=== PATIENT | male | born 1975 | race Caucasian/White ===

== ENCOUNTER 2016-10-23 16:16 | Emergency (ER) | payer MEDICAID ==
[2016-10-23 16:50] VITALS: BP 153/64
[2016-10-23] MEDS ORDERED: KETOROLAC TROMETHAMINE 60 MG/2 ML VIAL IM ONE ×2 (17:35→17:46)
[2016-10-23] MEDS ORDERED: DIAZEPAM 5 MG/ML SYRG IM ONE (17:35)
--- OUTSIDE RECORDS SUMMARY | 2016-10-23 17:36 | XMS REPORT | Continuity of Care Document ---
:1975 Author Organization [facility] ([facility]) Address [address] [address] Phone [phone] Care Team Providers Name Role Phone Unavailable Primary Care Provider Unavailable Source Comments This disclosure is being made pursuant to the Care Everywhere program, applicable federal and state laws, and may not contain all informaitonavailable regarding this patient.[facility] ([facility]) Active Allergies and Adverse Reactions Not on File Current Medications Not on file Active Problems Not on file Social History Tobacco Use Types Packs/Day Years Used Date Never Assessed Plan of Care Health Maintenance Due Date Last Done Comments Hepatitis B Vaccine (1 of 3 - Primary Series) 1975 Tdap Vaccine 1986 Lipid Disorder Screening 1993 MMR Vaccine 1993 Td Vaccine 1993 Influenza Vaccine: Seasonal (#1) 04/06/2016 Results from Last 3 Months Not on file
--- OUTSIDE RECORDS SUMMARY | 2016-10-23 17:36 | XMS REPORT | Continuity of Care Document ---
:1975 Author Organization [facility] Address [place] [address] Care Team Providers Name Role Phone Mara Quiñones Primary Care Provider [phone] Source Comments This disclosure is being made pursuant to the [employer] program and maynot contain all information available regarding this patient.[facility] Active Allergies and Adverse Reactions Allergen Noted Date Severity Reactions Comments Chantix 03/17/2016 Low Tachycardia Ibuprofen 03/17/2016 Other (See Comments) ulcers Current Medications Be aware that medications may not be up to date as of this document. Alwaysverify current medications with the patient. Prescription Sig. Disp. Refills Start Date End Date Status CYCLOBENZAPRINE HCL PO Take by mouth. Active Active Problems Problem Noted Date Left flank pain 04/13/2016 Dysuria 04/13/2016 Nephrolithiasis 02/25/2016 Flank pain 02/25/2016 Microscopic hematuria 03/07/2014 Overview: Overview: IVAN LINDER MD Calculus of kidney 03/07/2014 Overview: Overview: IVAN LINDER MD Premature ejaculation 03/07/2014 Overview: Overview: IVAN LINDER MD Backache 12/13/2013 Overview: Overview: DANIEL LEE Social History Tobacco Use Types Packs/Day Years Used Date Current Every Day Smoker Smokeless Tobacco: Never Used Tobacco Cessation:Counseling Given: Yes Comments: Alcohol Use Drinks/Week oz/Week Comments No Alcoholic Drinks/day: ALCOHOL USE: NON-DRINKER Last Filed Vital Signs Vital Sign Reading Time Taken Blood Pressure 152/90 04/13/2016 2:00 PM CDT Pulse 74 04/13/2016 2:00 PM CDT Temperature 36.9 C (98.4 F) 04/13/2016 2:00 PM CDT Respiratory Rate 20 04/13/2016 2:00 PM CDT Height 1.702 m (5' 7") 03/17/2016 11:59 AM CDT Weight 101.606 kg (224 lb) 04/13/2016 2:00 PM CDT Body Mass Index 35.08 04/13/2016 2:00 PM CDT Oxygen Saturation - - Plan of Care Health Maintenance Due Date Last Done Comments Pneumococcal Medium Risk 19-64 yo (1 of 1 - PPSV23) 1994 Tetanus/Pertussis (1 - Tdap) 1994 Retired-INFLUENZA VACCINE 05/07/2016 Results from Last 3 Months Not on file
--- NOTE | 2016-10-23 17:44 | ERNOTE ---
Back Pain ER HPI Date of Service: 10/23/16 Presenting Symptoms: hx chronic back pain Time Seen by Provider: 10/23/16 17:25 Source: patient, RN notes reviewed, other - [facility] database Exam Limitations: no limitations Immunizations: IMMUNIZATION HX Immunizations Up to Date Yes History of Influenza Vaccine No Hx Pneumococcal Vaccination No Allergies/Adverse Reactions: Allergies varenicline tartrate [From Chantix] Allergy (Verified 10/27/16 04:12) ibuprofen Adverse Reaction (Verified 10/27/16 04:12) Home Medications: HOME MEDICATIONS HYDROcodone/ACETAMINOPHEN [[place] 5-325] 1 tab PO Q4H PRN #40 tab 11/02/15 [Last Taken Unknown] Orphenadrine Citrate [Norflex] 100 mg PO Q12H #14 tablet.sa 10/27/16 [Last Taken Unknown] Oxybutynin Chloride [Ditropan] 5 mg PO DAILY 10/27/16 [Last Taken Unknown] Doxycycline Monohydrate 100 mg PO BID #20 tablet 10/31/16 [Last Taken Unknown] Prednisone [Deltasone] 20 mg PO BID #10 tablet 10/31/16 [Last Taken Unknown] Narrative: 41 year old male ambulatory to the ED for low back pain that has become worse over the past few days after being on a long car trip. He takes hydrocodone and Flexeril without improvement. He reports being unable to take NSAIDS due to a history of an ulcer. He reports that his pain is in the same location as usual but is worse. He filled a rx for 180 [place] 10 mg tablets on 09/28/16. He states that he will run out tomorrow. His PCP is in [place] and he reports having an appointment with her next week. Timing: Reports: constant Quality/Severity: Reports: severe, aching Location of pain: Reports: lower back Activities at Onset: Reports: none Recent Injury?: Reports: no Associated Symptoms: Denies: fever/chills, sweating, constipation/incontinence, nausea/vomiting, problems urinating, difficulty walking, lightheadedness, numbess/weakness in legs Prior Treament: Reports: similar symptoms before Review of Systems - Review of Systems Constitutional: Present: See HPI EYE: Present: no symptoms reported ENT: Present: no symptoms reported Respiratory: Absent: shortness of breath, cough Cardiology: Absent: chest pain, syncope Gastrointestinal/Abdominal: Present: See HPI Genitourinary: Present: See HPI Musculoskeletal: Present: back pain, muscle pain Skin: Absent: rash, lesions, lumps Neurological: Present: See HPI Endocrine: Present: no symptoms reported Hematologic/Lymphatic: Present: no symptoms reported Psych: Present: no symptoms reported - Patient's Past Medical History Patient History - Medical: Chronic Pain Patient History - Cardiac/Respiratory: No pertinent hx Patient History - Cancer: No Hx of Cancer Patient History - Surgical Procedures: No surgical history Patient History - Other: None - Social History Living Situations: home Abuse History: No History of abuse Psych History: No pertinent hx Does anyone smoke in the home?: Yes Smoking Status: Current every day smoker Have you smoked in the past 12 months: Yes Alcohol Use: none Drug Use: none - Immunizations Immunizations Up to Date: Yes Hx Pneumococcal Vaccination: No History of Influenza Vaccine: No Physical Exam - Physical Exam General Appearance: Present: wd/wn, alert, no apparent distress, other - appears mildly uncomfortable, does not want to sit Respiratory: Present: no respiratory distress, no accessory muscle use Back Exam: Present: no CVA tenderness, no vertebral tenderness, other - diffuse muscle tenderness throughout lumbar region. Absent: muscle spasm Extremity Exam: Present: normal inspection, normal range of motion Neurological Exam: Present: alert, oriented, normal mood/affect, no motor/ sensory deficits Skin Exam: Present: normal color, warm/dry ED Progress - Vital Signs Patient's Vital Signs:: I have reviewed the patient's vital signs. Vital Signs: Vital Signs 10/23/16 16:44 Temperature 36.5 C Pulse Rate 98 Respiratory 16 Rate Blood Pressure 153/64 O2 Sat by Pulse 97 Oximetry - Progress/Reassessment Chief Complaint: Back Pain Progress:: Unchanged Plan - Plan Plan: Patient informed that his chronic pain cannot be addressed in the ED. Wants his pain medication refilled because he will be out tomorrow when he is not due for a refill until 10/29. Instructed to contact his PCP regarding this. Offered rx for NSAIDS but refuses d/t history of "ulcer." States he cannot even take ibuprofen with food because it causes abdominal pain. Departure Clinical Impression: Chronic low back pain Qualifiers: Back pain laterality: unspecified Sciatica presence: unspecified whether sciatica present Qualified Code(s): M54.5 - Low back pain - Departure Disposition: Home Follow Up Needed Condition: Stable Instructions: Chronic Pain Additional Instructions: Contact your doctor for further treatment and pain medication
[2016-10-23] MEDS ORDERED: DIAZEPAM 5 MG/ML SYRG ONE (17:46)
== END 2016-10-23 17:55 | disposition home or self-care (01) ==
LOC: ER 16:16
DX: M54.5 Low back pain (principal); G89.29 Other chronic pain; Z72.0 Tobacco use

== ENCOUNTER 2016-10-27 04:02 | Emergency (ER) | payer MEDICAID ==
[2016-10-27] MEDS ORDERED: ORPHENADRINE CITRATE 30 MG/ML VIAL IV ONE (04:23)
[2016-10-27] MEDS ORDERED: ORPHENADRINE CITRATE 30 MG/ML VIAL ONE (04:27)
--- NOTE | 2016-10-27 04:32 | ERNOTE ---
Chest Pain/Cardiac HPI Chief Complaint: Chest Pain Time Seen by Provider: 10/27/16 04:15 Source: patient Exam Limitations: no limitations Immunizations: IMMUNIZATION HX Immunizations Up to Date No History of Influenza Vaccine No Hx Pneumococcal Vaccination No Allergies/Adverse Reactions: Allergies varenicline tartrate [From Chantix] Allergy (Verified 10/27/16 04:12) ibuprofen Adverse Reaction (Verified 10/27/16 04:12) Home Medications: HOME MEDICATIONS Cyclobenzaprine HCl [Flexeril] 10 mg PO TID PRN #30 tab 11/02/15 [Last Taken Unknown] HYDROcodone/ACETAMINOPHEN [[place] 5-325] 1 tab PO Q4H PRN #40 tab 11/02/15 [Last Taken Unknown] Orphenadrine Citrate [Norflex] 100 mg PO Q12H #14 tablet.sa 10/27/16 [Last Taken Unknown] Oxybutynin Chloride [Ditropan] 5 mg PO DAILY 10/27/16 [Last Taken Unknown] Narrative: Pt states he began to have right sided chest pain a few hours ago. He took oxycodone 10/325 and flexeril 5mg with minimal benefit Timing: constant Severity/Quality: moderate, stabbing Location: other - right chest Chest Pain Radiation: no radiation Activities at Onset: sleep Modifying Factors - Improves: Present: rest Modifying Factors - Worsens: Present: breathing, position - arms elevated Associated Symptoms: Present: denies symptoms Review of Systems - Review of Systems Constitutional: Absent: recent illness EYE: Present: no symptoms reported ENT: Absent: nose congestion, nasal drainage Respiratory: Present: See HPI, other - increased pain with deep breath. Absent : cough Cardiology: Present: See HPI, chest pain. Absent: palpitations, syncope Gastrointestinal/Abdominal: Present: no symptoms reported Genitourinary: Present: no symptoms reported Musculoskeletal: Present: muscle pain Skin: Present: no symptoms reported Neurological: Present: no symptoms reported Endocrine: Present: no symptoms reported Hematologic/Lymphatic: Present: no symptoms reported Psych: Present: no symptoms reported - Patient's Past Medical History Patient History - Medical: Chronic Pain, GERD, Kidney stone Patient History - Cardiac/Respiratory: No pertinent hx Patient History - Cancer: No Hx of Cancer Patient History - Surgical Procedures: No surgical history Patient History - Other: None - Social History Living Situations: home Abuse History: No History of abuse Psych History: No pertinent hx Does anyone smoke in the home?: Yes Smoking Status: Current every day smoker Patient requests Smoking Cessation Consult: No Initiate information on Smoking Cessation: No Alcohol Use: none Drug Use: none - Immunizations Immunizations Up to Date: No Hx Pneumococcal Vaccination: No History of Influenza Vaccine: No Physical Exam - Physical Exam General Appearance: Present: wd/wn, alert, mild distress Eye Exam: Normal inspection: bilateral Ears, Nose, Throat: Present: hearing grossly normal Neck: Present: normal inspection, nontender Respiratory: Present: no respiratory distress, no accessory muscle use, lungs clear, chest tenderness - right side Cardiovascular/Chest: Present: regular rate, rhythm, no murmur, normal peripheral pulses Gastrointestinal/Abdominal: Present: normal bowel sounds, nontender, nondistended, soft Back Exam: Present: normal inspection, normal range of motion Extremity Exam: Present: normal inspection, non-tender, no edema Neurological Exam: Present: alert, oriented, normal mood/affect, no motor/ sensory deficits Skin Exam: Present: normal color, warm/dry Lymphatic Exam: Present: no adenopathy ED Progress - Vital Signs Vital Signs: Vital Signs 10/27/16 04:02 Temperature 37.5 C Pulse Rate 98 Respiratory 18 Rate Blood Pressure 153/78 O2 Sat by Pulse 98 Oximetry - X-Ray X-Ray #1 X-Ray: chest Interpretation: Interp. by me X-ray Comments: Head of Right clavicle appears somewhat inferior of usual position. no acute fracture identified - Progress/Reassessment Chief Complaint: Chest Pain Progress:: Pain free at discharge Progress Note-Subjective: 10/27/16 06:16 Checked for pain specifically at the SC joint on the right. Pt denies any pain or tenderness at the SC or surrounding area. Departure - Departure Clinical Impression: Muscle spasm, Musculoskeletal chest pain Disposition: Home self-care Condition: Good Instructions: Muscle Cramps and Spasms, [id number] Additional Instructions: Take the norflex twice a day as needed. See your regular doctor if not improving. Referrals: [Primary Care Provider] - Prescriptions: Orphenadrine Citrate [Norflex] 100 mg PO Q12H #14 tablet.sa
[2016-10-27] MEDS ORDERED: ONDANSETRON HCL/PF 2 MG/ML VIAL IV ONE (05:05)
[2016-10-27] MEDS ORDERED: NALBUPHINE HCL 20 MG/ML AMPUL IV ONE (05:05)
[2016-10-27] MEDS ORDERED: NALBUPHINE HCL 20 MG/ML AMPUL ONE (05:13)
[2016-10-27] MEDS ORDERED: ONDANSETRON HCL/PF 2 MG/ML VIAL ONE (05:13)
--- OUTSIDE RECORDS SUMMARY | 2016-10-27 05:17 | XMS REPORT | Continuity of Care Document ---
:1975 Author Organization [facility] ([facility]) Address [place] [address] Phone [phone] Care Team Providers Name Role Phone Unavailable Primary Care Provider Unavailable Source Comments This disclosure is being made pursuant to the Care Everywhere program, applicable federal and state laws, and may not contain all informaitonavailable regarding this patient.[facility] ([facility]) Active Allergies and Adverse Reactions Not [...]
--- OUTSIDE RECORDS SUMMARY | 2016-10-27 05:17 | XMS REPORT | Continuity of Care Document ---
:1975 Author Organization [facility] [place] [address] Care Team Providers Name Role Phone Mara Quiñones Primary Care Provider [phone] Source Comments This disclosure is being made pursuant to the [employer] program and maynot contain all information available regarding this patient.[employer] Active Allergies and Adverse Reactions Allergen Noted [...]
[2016-10-27 06:21] VITALS: BP 121/75
== END 2016-10-27 06:00 | disposition home or self-care (01) ==
LOC: SUPCPDRO 04:02 → ER 04:02
DX: M62.838 Other muscle spasm (principal); R07.89 Other chest pain; F17.210 Nicotine dependence, cigarettes, uncomplicated; Z87.442 Personal history of urinary calculi

== ENCOUNTER 2016-10-31 18:28 | Emergency (ER) | payer MEDICAID ==
[2016-10-31 18:40] VITALS: BP 129/70
[2016-10-31] MEDS ORDERED: CODEINE PHOSPHATE/GUAIFENESIN 5 ML UDC PO ONE (18:51)
--- OUTSIDE RECORDS SUMMARY | 2016-10-31 18:52 | XMS REPORT | Continuity of Care Document ---
:1975 Author Organization [facility] [place] [address] Care Team Providers Name Role Phone Mara Quiñones Primary Care Provider [phone] Source Comments This disclosure is being made pursuant to the [employer] program and maynot contain all information available regarding this patient.[employer] Active Allergies and Adverse Reactions Allergen Noted [...]
--- OUTSIDE RECORDS SUMMARY | 2016-10-31 18:52 | XMS REPORT | Continuity of Care Document ---
:1975 Author Organization [facility] ([facility]) Address [place] [address] Phone [phone] Care Team Providers Name Role Phone Unavailable Primary Care Provider Unavailable Source Comments This disclosure is being made pursuant to the Care Everywhere program, applicable federal and state laws, and may not contain all informaitonavailable regarding this patient.[facility] ([facility]) Active Allergies and Adverse Reactions Not [...]
[2016-10-31] MEDS ORDERED: CODEINE PHOSPHATE/GUAIFENESIN 5 ML UDC ONE (18:59)
[2016-10-31 19:10] LABS: Hematocrit 40.5 % (42.0-52.0); Hemoglobin 13.4 gm/dL (13.5-18.0); Mean Cell Volume 88.8 fl (78-100); Mean Corpuscular Hemoglobin 29.4 pg (27-31); Mean Corpuscular Hgb Conc 33.1 g/dl (32-36); Mean Platelet Volume 9.9 fl (6.0-9.5); Neutrophil # 6.7 K/mm3 (1.3-6.0); Neutrophil % 72.2 % (42-75.0); Platelet Count 219 K/mm3 (150-450); Red Blood Count 4.56 M/mm3 (4.7-6.0); Red Cell Distribution Width 13.7 % (11.5-14.0); White Blood Count 9.3 K/mm3 (4.0-10.5)
[2016-10-31 19:23] LABS: Albumin * 3.6 gm/dl (3.4-5.0); Anion Gap 15.2 mmol/L (6.8-13.8); BUN/Creatinine Ratio 11.9 (9.0-21.6); Bilirubin, Total 0.3 mg/dL (0.0-1.1); Ca. Corrected For Albumin 8.7 mg/dL (8.4-10.2); Calcium * 8.7 mg/dL (7.9-10.9); Carbon Dioxide 25.7 mmol/L (24-32.6); Potassium 3.9 mmol/L (3.4-4.6); Total Protein 7.6 gm/dL (6.2-8.2)
--- NOTE | 2016-10-31 19:28 | ERNOTE ---
Time Seen by Provider: 10/31/16 18:47 Stated Complaint: COUGHING UP BLOOD, BACK PAIN Presenting Symptoms:: cough Source: patient Immunizations: IMMUNIZATION HX Immunizations Up to Date No History of Influenza Vaccine No Hx Pneumococcal Vaccination No Allergies/Adverse Reactions: Allergies varenicline tartrate [From Chantix] Allergy (Verified 10/27/16 04:12) ibuprofen Adverse Reaction (Verified 10/27/16 04:12) Home Medications: HOME MEDICATIONS HYDROcodone/ACETAMINOPHEN [[place] 5-325] 1 tab PO Q4H PRN #40 tab 11/02/15 [Last Taken Unknown] Orphenadrine Citrate [Norflex] 100 mg PO Q12H #14 tablet.sa 10/27/16 [Last Taken Unknown] Oxybutynin Chloride [Ditropan] 5 mg PO DAILY 10/27/16 [Last Taken Unknown] Doxycycline Monohydrate 100 mg PO BID #20 tablet 10/31/16 [Last Taken Unknown] Prednisone [Deltasone] 20 mg PO BID #10 tablet 10/31/16 [Last Taken Unknown] - History of Present Ilness Timing: intermittent Severity: moderate Frequency/Possible Cause: Reports: no prior episodes Associated Symptoms: Reports: other - coughing up flecks of blood from the cough Review of Systems - Review of Systems Constitutional: Present: See HPI EYE: Present: no symptoms reported ENT: Present: no symptoms reported Respiratory: Present: cough Cardiology: Present: no symptoms reported Gastrointestinal/Abdominal: Present: no symptoms reported Genitourinary: Present: no symptoms reported Musculoskeletal: Present: no symptoms reported Skin: Present: no symptoms reported Neurological: Present: no symptoms reported Endocrine: Present: no symptoms reported Hematologic/Lymphatic: Present: no symptoms reported Psych: Present: no symptoms reported - Patient's Past Medical History Patient History - Medical: Chronic Pain, GERD, Kidney stone Patient History - Cardiac/Respiratory: No pertinent hx Patient History - Cancer: No Hx of Cancer Patient History - Surgical Procedures: No surgical history Patient History - Other: None - Social History Living Situations: home Abuse History: No History of abuse Psych History: No pertinent hx Does anyone smoke in the home?: Yes Smoking Status: Current every day smoker Patient requests Smoking Cessation Consult: No Initiate information on Smoking Cessation: No Alcohol Use: none Drug Use: none - Immunizations Immunizations Up to Date: No Hx Pneumococcal Vaccination: No History of Influenza Vaccine: No Physical Exam - Physical Exam General Appearance: Present: wd/wn, alert, moderate distress Eye Exam: Normal inspection: bilateral, PERRL: bilateral Ears, Nose, Throat: Present: normal ENT inspection, hearing grossly normal, normal pharynx Neck: Present: normal inspection, nontender Respiratory: Present: no accessory muscle use, chest nontender, other - fine coarse breath sounds Cardiovascular/Chest: Present: regular rate, rhythm, no murmur, normal peripheral pulses Gastrointestinal/Abdominal: Present: normal bowel sounds, nontender, nondistended, soft, no organomegaly Rectal Exam: Present: deferred Back Exam: Present: normal inspection, normal range of motion Extremity Exam: Present: normal inspection, non-tender, no edema, normal range of motion Neurological Exam: Present: alert, oriented, normal mood/affect Skin Exam: Present: normal color, warm/dry Lymphatic Exam: Present: no adenopathy ED Progress - Results and Orders Patient's Lab Results:: I have reviewed the patient's lab results. - Vital Signs Patient's Vital Signs:: I have reviewed the patient's vital signs. Vital Signs: Vital Signs 10/31/16 18:30 Temperature 36.3 C L Pulse Rate 82 Respiratory 16 Rate Blood Pressure 129/70 O2 Sat by Pulse 98 Oximetry - X-Ray X-Ray #1 X-Ray: chest Interpretation: Interp. by me - Progress/Reassessment Chief Complaint: Upper Respiratory Symptoms Progress:: Improved - Transfer of Care Expected Disposition: Discharge Departure - Departure Clinical Impression: Bronchitis Disposition: Home self-care Condition: Good Prescriptions: Doxycycline Monohydrate 100 mg PO BID #20 tablet Prednisone [Deltasone] 20 mg PO BID #10 tablet
[2016-10-31] MEDS ORDERED: predniSONE 20 MG TABLET PO ONE (19:35)
[2016-10-31] MEDS ORDERED: DOXYCYCLINE HYCLATE 100 MG TABLET PO ONE (19:35)
[2016-10-31] MEDS ORDERED: DOXYCYCLINE HYCLATE 100 MG TABLET ONE (19:40)
[2016-10-31] MEDS ORDERED: predniSONE 20 MG TABLET ONE (19:40)
== END 2016-10-31 19:47 | disposition home or self-care (01) ==
LOC: ER 18:28
DX: J40 Bronchitis, not specified as acute or chronic (principal); Z72.0 Tobacco use; G89.29 Other chronic pain

== ENCOUNTER 2017-04-14 13:26 | Emergency (ER) | payer MEDICAID ==
[2017-04-14] MEDS ORDERED: NITROGLYCERIN 0.4 MG/TAB BTL SL PRN (13:33)
[2017-04-14] MEDS ORDERED: ASPIRIN 81 MG TAB.CHEW PO ONE (13:33)
[2017-04-14] MEDS ORDERED: ASPIRIN 81 MG TAB.CHEW ONE (13:38)
--- NOTE | 2017-04-14 13:41 | ERNOTE ---
Chest Pain/Cardiac HPI Date of Service: 04/14/17 Time Seen by Provider: 04/14/17 13:32 Source: patient Exam Limitations: no limitations Immunizations: IMMUNIZATION HX Immunizations Up to Date No History of Influenza Vaccine No Hx Pneumococcal Vaccination No Allergies/Adverse Reactions: Allergies varenicline tartrate [From Chantix] Allergy (Verified 04/14/17 13:37) ibuprofen Adverse Reaction (Verified 04/14/17 13:37) Home Medications: HOME MEDICATIONS HYDROcodone/ACETAMINOPHEN [[place] 5-325] 1 tab PO Q4H PRN #40 tab 11/02/15 [Last Taken Unknown] Orphenadrine Citrate [Norflex] 100 mg PO Q12H #14 tablet.sa 10/27/16 [Last Taken Unknown] Oxybutynin Chloride [Ditropan] 5 mg PO DAILY 10/27/16 [Last Taken Unknown] Narrative: Pt. comes in with c/o L sided chest pain that radiates down his L arm, into his L post shoulder and started 3-4 days ago an was relieved slightly by oxygen that he borrowed from a friend. Pt. has a hx of chronic pain and is on 10/500 [place] and took two prior to arrival without any change in symptoms. Pt. states that he becomes SOB and has mild nausea with symptoms but denies any diaphoresis , dizziness, palpitations, and edema. Pt. also states that he has had increased stress over the past 3-4 weeks. Review of Systems - Review of Systems Constitutional: Present: no symptoms reported. Absent: recent illness, fever, chills, weakness, fatigue, malaise EYE: Present: no symptoms reported ENT: Present: no symptoms reported Respiratory: Present: shortness of breath - only with severe chest pain. Absent : cough, orthopnea, wheezing Cardiology: Present: chest pain. Absent: palpitations, edema Gastrointestinal/Abdominal: Present: nausea - only with severe chest pain. Absent: vomiting, diarrhea, abdominal pain Genitourinary: Present: no symptoms reported Musculoskeletal: Present: no symptoms reported. Absent: back pain, joint pain Skin: Present: no symptoms reported. Absent: rash, change in color Neurological: Present: anxiety, other - increased stress Endocrine: Present: no symptoms reported Hematologic/Lymphatic: Present: no symptoms reported All Other Systems: All systems neg except as marked - Patient's Past Medical History Patient History - Medical: Chronic Pain, GERD, Kidney stone Patient History - Cardiac/Respiratory: No pertinent hx Patient History - Cancer: No Hx of Cancer Patient History - Surgical Procedures: No surgical history Patient History - Other: None - Social History Living Situations: home Abuse History: No History of abuse Psych History: No pertinent hx Does anyone smoke in the home?: Yes Alcohol Use: none Drug Use: none - Immunizations Immunizations Up to Date: No Hx Pneumococcal Vaccination: No History of Influenza Vaccine: No Physical Exam - Physical Exam General Appearance: Present: wd/wn, alert, no apparent distress Head Exam: Present: normal inspection, no evidence of injury Eye Exam: Normal inspection: bilateral, PERRL: bilateral, EOMI: bilateral, Abnormal EOM: bilateral Ears, Nose, Throat: Present: normal ENT inspection, normal pharynx Neck: Present: normal inspection, nontender. Absent: lymphadenopathy (R), lymphadenopathy (L) Respiratory: Present: no respiratory distress, normal breath sounds, no accessory muscle use, chest nontender, lungs clear Cardiovascular/Chest: Present: regular rate, rhythm, no murmur, normal peripheral pulses Gastrointestinal/Abdominal: Present: normal bowel sounds, nontender, nondistended, soft, no organomegaly Back Exam: Present: normal inspection Extremity Exam: Present: normal inspection, no edema Neurological Exam: Present: alert, oriented, normal mood/affect, no motor/ sensory deficits Skin Exam: Present: normal color, warm/dry. Absent: pallor, skin rash ED Progress - Date and Time Seen: Date and Time: 04/14/17 14:35 pt. symptoms improved prior to treatment and no change since evaluation cardiac enzymes negative and no acute ST changes feel that this could be cardiac ischemia but is most likely anxiety. 04/14/17 14:48 Discussed options with pt. and offered pt. to stay for observation as I cannot completely rule out coronary artery disease and he declined and would like to follow up with his PCP on outpatient basis but agrees to return if symptoms worsen again. - Results and Orders Patient's Lab Results:: I have reviewed the patient's lab results. - Vital Signs Patient's Vital Signs:: I have reviewed the patient's vital signs. - EKG EKG: NSR, no ST T wave changes EKG read: Reviewed by me EKG Comments: interp by Dr valdes - Progress/Reassessment Progress:: Improved - without treatment Departure - Departure Clinical Impression: Musculoskeletal chest pain, Anxiety Disposition: Home self-care Condition: Good Instructions: Panic Attacks, [id number], Chest Wall Pain, [id number] Additional Instructions: Please follow up with primary provider in 2-3 days.
[2017-04-14 13:46] LABS: Hematocrit 42.3 % (42.0-52.0); Mean Cell Volume 87.9 fl (78-100); Mean Corpuscular Hemoglobin 29.1 pg (27-31); Mean Corpuscular Hgb Conc 33.1 g/dl (32-36); Neutrophil % 58.7 % (42-75.0); Platelet Count 192 K/mm3 (150-450); Red Blood Count 4.81 M/mm3 (4.7-6.0); Red Cell Distribution Width 13.2 % (11.5-14.0); White Blood Count 6.9 K/mm3 (4.0-10.5)
--- OUTSIDE RECORDS SUMMARY | 2017-04-14 13:51 | XMS REPORT | Encounter Summary ---
:1975 Author Organization [employer] [place] [address] Care Team Providers Name Role Phone Unavailable Primary Care Provider Unavailable Encounter Details Date Type Department Care Team Description 12/24/2016 Orders Only [facility] Provider, Not In Centralized Scanning System Social History Tobacco Use Types Packs/Day Years Used Date Current Every Day Smoker Smokeless Tobacco: Never Used Alcohol Use Drinks/Week oz/Week Comments No Alcoholic Drinks/day: ALCOHOL USE: NON-DRINKER Sex Assigned at Date Recorded Not on file as of this encounter Plan of Treatment Not on fileas of this encounter Results US SCROTUM AND CONTENTS (12/16/2016)in this encounter Visit Diagnoses Not on filein this encounter
--- OUTSIDE RECORDS SUMMARY | 2017-04-14 13:51 | XMS REPORT | Clinical Summary ---
:1975 Author Organization [facility] Address [place]available [place] [address] Care Team Providers Name Role Phone Unavailable Primary Care Provider Unavailable Source Comments This disclosure is being made pursuant to the [employer] program and maynot contain all information available regarding this patient.[facility] Allergies Active Allergy Reactions Severity Noted Date Comments Varenicline Tachycardia Low 03/17/2016 Ibuprofen Other (See Comments) 03/17/2016 ulcers Current Medications Be aware that medications [...] MD Backache 12/13/2013 Overview: Overview: DANIEL LEE Family History Medical History Relation Name Comments Prostate cancer Maternal Grandfather Stroke Maternal Grandfather Breast cancer Maternal Grandmother Diabetes Mother Relation Name Status Comments Maternal Grandfather Maternal Grandmother Mother Social History Tobacco Use Types Packs/Day Years Used Date Current Every Day Smoker Smokeless Tobacco: Never Used Tobacco Cessation:Counseling Given: Yes Alcohol Use Drinks/Week oz/Week Comments No Alcoholic Drinks/day: ALCOHOL USE: NON-DRINKER Sex Assigned at Date Recorded Not on file Last Filed Vital Signs Vital Sign Reading Time Taken Blood Pressure 152/90 04/13/2016 2:00 PM CDT Pulse 74 04/13/2016 2:00 PM CDT Temperature 36.9 C (98.4 F) 04/13/2016 2:00 PM CDT Respiratory Rate 20 04/13/2016 2:00 PM CDT Oxygen Saturation - - Inhaled Oxygen Concentration - - Weight 101.6 kg (224 lb) 04/13/2016 2:00 PM CDT Height 170.2 cm (5' 7") 03/17/2016 11:59 AM CDT Body Mass Index 35.08 04/13/2016 2:00 PM CDT Plan of Treatment Health Maintenance Due Date Last Done Comments Pneumococcal Medium Risk 19-64 yo (1 of 1 - PPSV23) 1994 Tetanus/Pertussis (1 - Tdap) 1994 INFLUENZA IMMUNIZATION (#1) 2017 Results Not on filefrom Last 3 Months Insurance Payer Benefit Plan / Subscriber ID Type Phone Address [place] [id number] [place] [phone] [place] [id number]
[2017-04-14 13:54] LABS: Prothrombin Time (Patient) 9.9 Seconds (9.4-11.4)
[2017-04-14 14:02] LABS: INR 0.95 INR (0.90-1.10); Partial Thrombolplastin Time 25.1 Seconds (24-32)
[2017-04-14 14:03] LABS: ALT 20 U/L (19-67); AST 12 U/L (0-48); Albumin * 3.6 gm/dl (3.4-5.0); Alkaline Phosphatase * 89 U/L (50-170); Bilirubin, Total 0.2 mg/dL (0.0-1.1); Blood Urea Nitrogen 10 mg/dL (6-23); Ca. Corrected For Albumin 8.7 mg/dL (8.4-10.2); Calcium * 8.7 mg/dL (7.9-10.9); Carbon Dioxide 29.7 mmol/L (24-32.6); Chloride 105 mmol/L (97-106); Glucose * 123 mg/dL (70-110); Potassium 3.7 mmol/L (3.4-4.6); Sodium 143 mmol/L (132-142); Troponin I Less than 0.017 ng/ml (0.00-0.10)
[2017-04-14 14:48] VITALS: BP 104/54
== END 2017-04-14 15:07 | disposition home or self-care (01) ==
LOC: ER 13:26
DX: R07.89 Other chest pain (principal); F41.9 Anxiety disorder, unspecified; G89.29 Other chronic pain; K21.9 Gastro-esophageal reflux disease without esophagitis